=== PATIENT | female | born 1965 | race Caucasian/White ===

== ENCOUNTER 2017-03-19 18:12 | Inpatient (IN) | payer OTHER ==
[~2017-03-19] VITALS: Ht 162.6 cm; Wt 81.5 kg
[2017-03-19 21:00] LABS: AMPHETAMINE NEGATIVE (500 ng/mL); BARBITURATES NEGATIVE (200 ng/mL); BENZODIAZEPINES NEGATIVE (150 ng/mL); COCAINE NEGATIVE (150 ng/mL); INTERNAL CONTROLS VALID? YES; METHADONE NEGATIVE (200 ng/mL); METHAMPHETAMINE NEGATIVE (500 ng/mL); OPIATES (MORPHINE) NEGATIVE (100 ng/mL); OXYCODONE NEGATIVE (100 ng/mL); PHENCYCLIDINE NEGATIVE (25 ng/mL); PROPOXYPHENE NEGATIVE (300 ng/mL); THC CANNABINOIDS NEGATIVE (50 ng/mL); TRICYCLIC ANTIDEPRESSANTS NEGATIVE (300 ng/mL)
[2017-03-19 23:01] LABS: HEMATOCRIT 46.2 % (36.0-46.0); MCHC 33.5 G/DL (30.0-36.0); MCV 89.4 FL (83-99); MEAN PLAT.VOLUME 8.7 uM^3 (9.5-12.4); PLATELET COUNT 349 K/uL (156-360); RBC DIS.WIDTH-CV 12.8 % (11.8-14.6); RBC DIS.WIDTH-SD 42.2 % (39-53); RED BLOOD COUNT 5.17 M/uL (3.80-5.20)
[2017-03-19 23:36] LABS: CHLORIDE 106 mEq/L (99-109); POTASSIUM 4.1 mEq/L (3.7-5.4); SODIUM 140 mEq/L (136-147)
[2017-03-19 23:38] LABS: GLUCOSE 104 mg/dL (70-99)
[2017-03-19 23:39] LABS: ANION GAP 12 MEQ/L (2-14)
[2017-03-19 23:41] LABS: SERUM ETHYL ALCOHOL < 10 mg/dL
[2017-03-19 23:42] LABS: GFR ESTIMATE (CALCULATED) > 59 mL/min/
[2017-03-19 23:43] LABS: UREA NITROGEN (BUN) 17 mg/dL (9-23)
[2017-03-20 08:00] VITALS: BP 143/74
[2017-03-20 16:36] VITALS: BP 143/63
[2017-03-21 15:58] VITALS: BP 152/84
[2017-03-22 07:50] VITALS: BP 160/79
[2017-03-22 15:26] VITALS: BP 120/72
[2017-03-23 15:24] VITALS: BP 138/64
[2017-03-24 07:37] VITALS: BP 144/71
[2017-03-24] MEDS ORDERED: ESCITALOPRAM OX10 MG PO (10:06)
[2017-03-24] MEDS ORDERED: QUETIAPINE FUMA50 MG PO (10:06)
[2017-03-24] MEDS ORDERED: ZOLPIDEM TARTRAT5 MG PO (10:07)
[2017-03-24 10:51] VITALS: BP 142/77
== END 2017-03-24 13:45 | disposition home or self-care (01) | DRG 885 ==
LOC: EME 18:12 → 1WEST 23:54 → EDOF 23:54 → 1WEST 03-20 02:15
DX: F31.9 Bipolar disorder, unspecified (principal); R45.851 Suicidal ideations; F60.9 Personality disorder, unspecified; F41.1 Generalized anxiety disorder; F17.200 Nicotine dependence, unspecified, uncomplicated; Z98.84 Bariatric surgery status
CPT/HCPCS: 80048; 85027; 90839; 97150 GO; 97166 GO; 97530 GO; 99281; 99285; G0480; Q0177